=== PATIENT | female | born 1985 | race Two or more races ===

== ENCOUNTER 2017-10-21 05:36 | Day surgery (SDC) | payer BC, OTHER ==
[2017-10-19 11:00] LABS: APPEARANCE,URINE CLEAR; BILIRUBIN,URINE NEGATIVE (NEGATIVE); COLOR,URINE STRAW; GLUCOSE, URINE NEGATIVE (NEGATIVE); KETONES,URINE NEGATIVE (NEGATIVE); LEUKOCYTE ESTERASE,URINE NEGATIVE (NEGATIVE); NITRITE,URINE NEGATIVE (NEGATIVE); PROTEIN,URINE NEGATIVE (NEGATIVE); URINE SPECIFIC GRAVITY 1.004; UROBILINOGEN,URINE NEGATIVE mg/dL (<2.0)
[2017-10-19 11:10] LABS: HEMATOCRIT 39.9 % (36.0-47.0); HEMOGLOBIN 13.6 g/dL (12.0-15.5); MEAN CORPUSCULAR HEMOGLOBIN 30.8 pg (27.0-33.4); MEAN CORPUSCULAR VOLUME 91 fl (80-97); PLATELET COUNT 229 10^3/uL (150-450); RED BLOOD COUNT 4.41 10^6/uL (3.72-5.28); WHITE BLOOD COUNT 5.4 10^3/uL (4.0-10.5)
[2017-10-19 11:40] LABS: ANION GAP 11 (5-19); BLOOD UREA NITROGEN 11 mg/dL (7-20); CARBON DIOXIDE 28 mmol/L (22-30); CHLORIDE 103 mmol/L (98-107); GLUCOSE 82 mg/dL (75-110); POTASSIUM 4.1 mmol/L (3.6-5.0); SODIUM 141.6 mmol/L (137-145)
--- NOTE | 2017-10-19 12:13 | RADIOLOGY REPORT (SQ) ---
EXAM DESCRIPTION: CHEST PA/LATERAL COMPLETED DATE/TIME: 10/19/2017 11:58 am REASON FOR STUDY: PRE OP COMPARISON: None. EXAM PARAMETERS: NUMBER OF VIEWS: two views TECHNIQUE: Digital Frontal and Lateral radiographic views of the chest acquired. RADIATION DOSE: NA LIMITATIONS: none FINDINGS: LUNGS AND PLEURA: No opacities, masses or pneumothorax. No pleural effusion. MEDIASTINUM AND HILAR STRUCTURES: No masses or contour abnormalities. HEART AND VASCULAR STRUCTURES: Heart normal size. No evidence for failure. BONES: No acute findings. HARDWARE: None in the chest. OTHER: No other significant finding. IMPRESSION: NO SIGNIFICANT RADIOGRAPHIC FINDING IN THE CHEST. TECHNICAL DOCUMENTATION: JOB ID: [id number] [employer]- All Rights Reserved
--- NOTE | 2017-10-19 12:49 | EKG REPORT ---
SEVERITY:- NORMAL ECG - SINUS RHYTHM : Confirmed by: Jean Claude Morales MD 19-Oct-2017 12:48:56
[~2017-10-21 05:36] MED LIST: CEFAZOLIN 1 GM/D5W RTU 1 GM/50 ML RTUPB IV PRN; LACTATED RINGERS 1000 ML IV PRN; LIDOCAINE 0.5% INJ-PF (5 MG/ML) 50 ML SDV SUBCUT PRN
[2017-10-21] MEDS ORDERED: LIDOCAINE 2% INJ-PF (20 MG/ML) 10 ML AMPUL ONE (06:48)
[2017-10-21] MEDS ORDERED: FENTANYL CITRATE INJ/PF 100 MCG/2 ML AMPUL ONE (06:48)
[2017-10-21] MEDS ORDERED: PROPOFOL INJ 200 MG/20 ML VIAL IV ONE (06:49)
[2017-10-21] MEDS ORDERED: ONDANSETRON HCL INJ/PF 4 MG/2 ML SDV ONE (06:49)
[2017-10-21] MEDS ORDERED: ACETAMINOPHEN 100 ML IV ONE (06:49)
[2017-10-21] MEDS ORDERED: MIDAZOLAM 2 MG/2 ML INJ ONE (06:49)
[2017-10-21] MEDS ORDERED: MORPHINE SULFATE 10 MG/ML INJ ONE (06:50)
[2017-10-21] MEDS ORDERED: LIDOCAINE 1%/EPINEPHRINE INJ 20 ML VIAL ONE (07:39)
[2017-10-21] MEDS ORDERED: DIPHENHYDRAMINE HCL 50 MG/ML VIAL IV PRN (07:46)
[2017-10-21] MEDS ORDERED: PROMETHAZINE HCL INJ 25 MG/1 ML VIAL IV PRN (07:46)
[2017-10-21] MEDS ORDERED: FENTANYL CITRATE INJ/PF 100 MCG/2 ML AMPUL IV PRN ×3 (07:46)
[2017-10-21] MEDS ORDERED: MORPHINE SULFATE 10 MG/ML INJ IV PRN (07:46)
[2017-10-21] MEDS ORDERED: GLYCOPYRROLATE INJ 0.4 MG/2 ML VIAL ONE (08:06)
[2017-10-21] MEDS ORDERED: DEXAMETHASONE SOD PHOSPHATE INJ 4 MG/1 ML VIAL ONE (08:06)
[2017-10-21] MEDS: FENTANYL CITRATE INJ/PF 100 MCG/2 ML AMPUL ONE ×2 (08:50→08:55)
--- NOTE | 2017-10-21 09:11 | OPERATIVE REPORT E ---
Operative Report NAME: QUANG FITZGERALD : 1985 AGE: 32Y DATE OF SURGERY: 10/21/2017 ROOM: PREOPERATIVE DIAGNOSES: 1. Dysmenorrhea. 2. Dyspareunia. POSTOPERATIVE DIAGNOSES: 1. Dysmenorrhea. 2. Dyspareunia. PROCEDURES: 1. Total vaginal hysterectomy. 2. Manning culdoplasty. SURGEON: ALPESH ANN M.D. COMPLICATIONS: None. ANESTHESIA: General endotracheal. ESTIMATED BLOOD LOSS: 50 mL. FINDINGS: Normal-appearing uterus and cervix, which was removed and sent to pathology. Normal-appearing tubes and ovaries. No enterocele formation was noted. INDICATIONS FOR PROCEDURE: The patient was symptomatic with debilitating period as well as uterine origin, dyspareunia with retroverted uterus. This is unresponsive to usual outpatient management. She elected to proceed with total vaginal hysterectomy. The usual risks of bleeding, infection, anesthesia, and damage to organs and tissues were discussed and the patient understood. DESCRIPTION OF PROCEDURE: The patient was taken to the operating room and placed in the modified lithotomy position. After adequate anesthesia was ascertained, prepped and draped in the usual manner for a vaginal hysterectomy. After EUA performed, surgical timeout performed, antibiotics had been given, posterior colpotomy incision was made uneventful. Uterosacral ligaments were crossclamped, cut, suture ligated, and held. Cervix was circumscribed. The cardinal ligaments were released. Dissection with progression of the advancement of the bladder sequentially throughout the aspect of the case was performed. The uterine vessels were identified and suture ligated and the bladder reflected off the anterior uterine segment and the anterior peritoneum was entered without difficulty and the 3D retractor placed at this point. The upper pedicles were then identified, suture ligated, free tied, and cauterized. These were released after good hemostasis was noted. Parietal peritoneum was noted to be dry. The Manning culdoplasty stitches were placed and held and the vagina did not close in an anterior/posterior fashion. Interrupted #1 Chromic catgut sutures were used throughout the case along with the LigaSure advanced device. At completion of procedure, all sponge and needle counts were correct. The patient was taken to recovery room in stable condition. Approximately 8 mL of 1% lidocaine with epinephrine was used to infiltrate the posterior cul-de-sac after entry into the peritoneum for hemostasis. DICTATING PHYSICIAN: ALPESH ANN M.D. [id number] PHY#: [id number] ID: [id number] JOB#: [id number] ACCT: [id number] cc:ALPESH ANN M.D. >
[2017-10-21] MEDS: MORPHINE SULFATE 10 MG/ML INJ ONE ×3 (09:25→09:45)
[2017-10-21] MEDS ORDERED: MORPHINE INJ 6 MG DOSE (EDIT ROUTE) INJ PRN (09:30)
[2017-10-21] MEDS ORDERED: MORPHINE INJ 4 MG DOSE (EDIT ROUTE) INJ PRN (09:30)
[2017-10-21] MEDS ORDERED: MORPHINE INJ 8 MG DOSE IM PRN (09:30)
[2017-10-21] MEDS ORDERED: PROMETHAZINE HCL INJ 25 MG/1 ML VIAL IM PRN (09:30)
[2017-10-21] MEDS ORDERED: RINGERS SOLUTION,LACTATED 1,000 ML IV ONE (10:00)
[2017-10-21] MEDS: CEFAZOLIN 1 GM RTU (EDIT START TIME) IV SCH ×2 (13:23→17:18)
[2017-10-21 20:45] VITALS: BP 127/84
[2017-10-21] MEDS ORDERED: ACETAMINOPHEN 325 MG TABLET PO PRN (21:34)
[2017-10-21] MEDS ORDERED: ZOLPIDEM TARTRATE 5 MG TABLET PO SCH (22:00)
[2017-10-22] MEDS: OXYCODONE-ACETAMINOPHEN 5-325 MG TABLET PO PRN ×2 (03:33→08:02)
[2017-10-22 07:04] LABS: HEMATOCRIT 35.3 % (36.0-47.0); HEMOGLOBIN 12.3 g/dL (12.0-15.5); MEAN CORPUSCULAR HEMOGLOBIN 31.2 pg (27.0-33.4); MEAN CORPUSCULAR HGB CONC 34.9 g/dL (32.0-36.0); MEAN CORPUSCULAR VOLUME 90 fl (80-97); PLATELET COUNT 198 10^3/uL (150-450); RED BLOOD COUNT 3.94 10^6/uL (3.72-5.28); RED CELL DISTRIBUTION WIDTH 13.1 % (11.5-14.0); WHITE BLOOD COUNT 5.9 10^3/uL (4.0-10.5)
== END 2017-10-22 09:19 | disposition home or self-care (01) ==
LOC: OROUT 05:36 → 2S 10:30 → OROUT 10-22 09:19
PROVIDERS: ATTEND Specialist
PROC: 0UT97ZZ Resection of Uterus, Via Natural or Artificial Opening (ICD-10-PCS; principal; 2017-10-21 07:15)
DX: N94.4 Primary dysmenorrhea (principal); N94.10 Unspecified dyspareunia; Z88.6 Allergy status to analgesic agent
CPT/HCPCS: 93005; 86900; 86901; 36415 ×2; 86850; 85027 ×2; 81025; 80048; 81001; 88307 ×2; 71046; 94799; 93010; 58260; J2250; J0690; J1100; J3010; J3490 ×2; J2270; J2405; J7120; J2704; J0131; 944